=== PATIENT | male | born 1950 | race Caucasian/White ===

== ENCOUNTER 2017-01-08 19:55 | Emergency (ER) | payer MEDICARE, OTHER ==
[2017-01-08 20:10] VITALS: BP 139/60
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
--- NOTE | 2017-01-08 21:03 | RAD ---
INDICATION: Left shoulder injury. TECHNIQUE: 4 views of the left shoulder were obtained. FINDINGS: There are postsurgical changes. There is a surgical strut within the humeral head likely from a prior rotator cuff tear. There are several metallic densities which project superior to the humeral head and adjacent to the distal clavicle and acromion process. There is widening of the acromioclavicular joint and coracoclavicular space which may be secondary to acromial clavicular separation or postsurgical change. No fracture is seen. There is mild osteoarthritic change in the glenohumeral joint. IMPRESSION: 1. POST SURGICAL CHANGES. 2. WIDENING OF THE ACROMIOCLAVICULAR AND CORACOCLAVICULAR SPACES CONSISTENT WITH POSTSURGICAL CHANGE VERSUS ACROMIOCLAVICULAR SEPARATION. 3. NO EVIDENCE FOR FRACTURE.
== END 2017-01-08 21:21 | disposition home or self-care (01) ==
LOC: UCCORT 19:55
DX: M25.512 Pain in left shoulder (principal); I10 Essential (primary) hypertension
CPT/HCPCS: 99202; G0463